=== PATIENT | female | born 1950 | race Caucasian/White ===

== ENCOUNTER → 2017-06-05 | Outpatient (CLI) | payer OTHER ==
[~2017-06-05] MED LIST: ASPIRIN81 M1 PO; ATIVAN0.5 MG PO; CEFUROXIME AXE250 MG PO; CLONIDINE0.2 MG PO; FLEXERIL5 MG PO; KLONOPIN0.5 MG PO; PERCOCET 325 MG1 TA2 PO; PREMARIN1.25 MG PO; PROTONIX40 MG PO; TOPROL XL50 MG PO; VICODIN 5/500 505 MG PO; VICODIN 500 MG-1 TAB PO; ZOFRAN ODT4 MG SL; ZOFRAN8 M1 PO
[2017-06-06 07:06] LABS: IMMUNOGLOBULIN M, QNT 34 mg/dL (26-217)
[2017-06-07 02:05] LABS: IGG SUBCLASS 1 310 mg/dL (248-810); IGG SUBCLASS 2 372 mg/dL (130-555); IGG SUBCLASS 3 55 mg/dL (15-102); IGG SUBCLASS 4 61 mg/dL (2-96); IMMUNOGLOBULIN G, QNT 770 mg/dL (700-1600)
== END | disposition home or self-care (01) ==
LOC: LAB 12:30
PROVIDERS: Internal Medicine Rheumatology
DX: R79.89 Other specified abnormal findings of blood chemistry (principal); Z86.19 Personal history of other infectious and parasitic diseases

== ENCOUNTER 2018-04-01 08:40 | Emergency (ER) | payer OTHER ==
[2018-04-01 11:00] VITALS: BP 162/59
[2018-04-01] MEDS ORDERED: PERCOCET 5-3251 EACH PO (11:12)
== END 2018-04-01 11:29 | disposition home or self-care (01) ==
LOC: ED 08:40
DX: S42.474A Nondisplaced transcondylar fracture of right humerus, initial encounter for closed fracture (principal); Z88.0 Allergy status to penicillin; Z88.2 Allergy status to sulfonamides; Z79.899 Other long term (current) drug therapy; W22.8XXA Striking against or struck by other objects, initial encounter; Y93.89 Activity, other specified; Y92.89 Other specified places as the place of occurrence of the external cause; Y99.8 Other external cause status

== ENCOUNTER → 2018-06-06 | Outpatient (CLI) | payer OTHER ==
[~2018-06-06] MED LIST changes: +PERCOCET 5-3251 EACH PO
== END | disposition home or self-care (01) ==
LOC: US 12:33
DX: R92.8 Other abnormal and inconclusive findings on diagnostic imaging of breast (principal)

== ENCOUNTER → 2018-06-07 | Outpatient (CLI) | payer OTHER | END | disposition home or self-care (01) | LOC: RAD 06-05 13:00 → MAMMO 06-05 13:30 → RAD 10:58 | DX: Z13.820 Encounter for screening for osteoporosis (principal); N95.9 Unspecified menopausal and perimenopausal disorder; Z90.49 Acquired absence of other specified parts of digestive tract ==

== ENCOUNTER → 2019-02-11 | Outpatient (CLI) | payer OTHER ==
[2019-02-11 14:32] LABS: BASO # 0.1 10*3/uL (0.0-0.1); BASO % 0.9 % (0.0-1.0); EOS # 0.2 10*3/uL (0.0-0.4); EOS % 2.7 % (1.0-4.0); HEMOGLOBIN 12.1 g/dl (12.0-16.0); LYMPH # 1.8 10*3/uL (1.3-4.4); LYMPH % 25.9 % (27.0-41.0); MEAN CORPUSCULAR HGB 34.6 pg (27.0-31.0); MEAN CORPUSCULAR HGB CONC 34.6 g/dl (33.0-37.0); MEAN PLATELET VOLUME 9.1 fl (9.6-12.3); MONO # 0.9 10*3/uL (0.1-1.0); MONO % 13.3 % (3.0-9.0); NEUT # 3.9 10*3/uL (2.3-7.9); NEUT % 57.1 % (47.0-73.0); PLATELET COUNT AUTOMATED 240 10*3/uL (130-400); RED CELL DISTRI WIDTH 13.1 % (0-14.5); WHITE BLOOD COUNT 6.9 10*3/uL (4.8-10.8)
[2019-02-11 14:50] LABS: BUN 11 mg/dl (7-24); CHLORIDE 96 mmol/L (98-107); CREATININE 0.89 mg/dL (0.55-1.02); POTASSIUM 4.3 mmol/L (3.5-5.1); SODIUM 128 mmol/L (136-145)
== END | disposition home or self-care (01) ==
LOC: LAB 13:58
PROVIDERS: Internal Medicine
DX: R70.0 Elevated erythrocyte sedimentation rate (principal); R79.82 Elevated C-reactive protein (CRP); R79.89 Other specified abnormal findings of blood chemistry; R82.71 Bacteriuria

== ENCOUNTER 2019-02-15 08:50 | Emergency (ER) | payer OTHER ==
[~2019-02-15] VITALS: Ht 165.1 cm; Wt 54.4 kg
[2019-02-15 08:51] VITALS: BP 112/74
[2019-02-15 09:19] LABS: BASO % 0.6 % (0.0-1.0); EOS # 0.2 10*3/uL (0.0-0.4); EOS % 2.3 % (1.0-4.0); HEMATOCRIT 35.8 % (37.0-47.0); HEMOGLOBIN 12.2 g/dl (12.0-16.0); LYMPH # 0.9 10*3/uL (1.3-4.4); LYMPH % 13.8 % (27.0-41.0); MEAN CELL VOLUME 100.3 fl (81.0-99.0); MEAN CORPUSCULAR HGB 34.2 pg (27.0-31.0); MEAN CORPUSCULAR HGB CONC 34.1 g/dl (33.0-37.0); MEAN PLATELET VOLUME 8.8 fl (9.6-12.3); MONO # 0.6 10*3/uL (0.1-1.0); MONO % 9.3 % (3.0-9.0); NEUT # 4.9 10*3/uL (2.3-7.9); NEUT % 73.7 % (47.0-73.0); PLATELET COUNT AUTOMATED 235 10*3/uL (130-400); RED BLOOD COUNT 3.57 10*6/uL (4.10-5.10); RED CELL DISTRI WIDTH 12.9 % (0-14.5); WHITE BLOOD COUNT 6.7 10*3/uL (4.8-10.8)
[2019-02-15 09:32] LABS: ALBUMIN 3.8 gm/dl (3.1-4.5); ALKALINE PHOSPHATASE 83 U/L (45-117); BUN 10 mg/dl (7-24); CHLORIDE 99 mmol/L (98-107); CREATININE 0.93 mg/dL (0.55-1.02); POTASSIUM 4.2 mmol/L (3.5-5.1); SGOT/AST 12 IU/L (3-35); SGPT/ALT 16 U/L (12-78); SODIUM 131 mmol/L (136-145); TOTAL PROTEIN 7.1 gm/dL (6.4-8.2)
== END 2019-02-15 10:56 | disposition home or self-care (01) ==
LOC: ED 08:50
PROVIDERS: Physician Assistant
DX: E87.1 Hypo-osmolality and hyponatremia (principal); Z79.899 Other long term (current) drug therapy; Z88.0 Allergy status to penicillin; Z88.2 Allergy status to sulfonamides

== ENCOUNTER → 2019-06-26 | Outpatient (CLI) | payer OTHER | END | disposition home or self-care (01) | LOC: US 08:50 | DX: R10.13 Epigastric pain (principal); Z90.49 Acquired absence of other specified parts of digestive tract; Z90.710 Acquired absence of both cervix and uterus; Z90.5 Acquired absence of kidney ==

== ENCOUNTER 2020-03-06 19:56 | Inpatient (IN) | payer OTHER ==
[~2020-03-06] VITALS: Ht 165.1 cm; Wt 59.4 kg
[2020-03-06] MEDS ORDERED: METHOCARBAMOL750 M1 PO (20:29)
[2020-03-06 21:15] LABS: BASO # 0.1 10*3/uL (0.0-0.1); BASO % 0.4 % (0.0-1.0); EOS # 0.1 10*3/uL (0.0-0.4); EOS % 0.7 % (1.0-4.0); HEMATOCRIT 41.2 % (37.0-47.0); LYMPH # 2.3 10*3/uL (1.3-4.4); LYMPH % 16.3 % (27.0-41.0); MEAN CELL VOLUME 102.7 fl (81.0-99.0); MEAN CORPUSCULAR HGB 33.7 pg (27.0-31.0); MEAN CORPUSCULAR HGB CONC 32.8 g/dl (33.0-37.0); MEAN PLATELET VOLUME 8.8 fl (9.6-12.3); MONO % 7.2 % (3.0-9.0); NEUT # 10.5 10*3/uL (2.3-7.9); NEUT % 74.8 % (47.0-73.0); PLATELET COUNT AUTOMATED 285 10*3/uL (130-400); RED BLOOD COUNT 4.01 10*6/uL (4.10-5.10); RED CELL DISTRI WIDTH 13.9 % (0-14.5)
[2020-03-06 21:17] LABS: BILIRUBIN Negative (Negative); BLOOD Trace-Lysed (Negative); CLARITY Clear (Clear); COLOR Yellow (Yellow); GLUCOSE Negative (Negative); KETONE Negative (Negative); LEUKO ESTERASE Trace (Negative); NITRITE Negative (Negative); PH 6.5 (4.5-8.0); SPECIFIC GRAVITY >= 1.030 (1.001-1.030)
[2020-03-06 21:32] LABS: BACTERIA TRACE; EPITHELIAL CELLS 0-2; RBC 0-2 rbc/hpf (0-2)
[2020-03-06 21:44] LABS: ALBUMIN 4.1 gm/dl (3.1-4.5); ALKALINE PHOSPHATASE 93 U/L (45-117); BUN 17 mg/dl (7-24); CHLORIDE 100 mmol/L (98-107); CREATININE 0.86 mg/dL (0.55-1.02); LIPASE 173 U/L (73-393); POTASSIUM 4.3 mmol/L (3.5-5.1); SGOT/AST 19 IU/L (3-35); SGPT/ALT 25 U/L (12-78); SODIUM 133 mmol/L (136-145); TOTAL PROTEIN 8.4 gm/dL (6.4-8.2)
[2020-03-07] VITALS (7 sets, daily range): BP systolic 153–182; BP diastolic 60–85
[2020-03-07 06:20] LABS: HEMATOCRIT 37.4 % (37.0-47.0); MEAN CELL VOLUME 103.6 fl (81.0-99.0); MEAN CORPUSCULAR HGB 34.1 pg (27.0-31.0); MEAN CORPUSCULAR HGB CONC 32.9 g/dl (33.0-37.0); PLATELET COUNT AUTOMATED 233 10*3/uL (130-400); RED BLOOD COUNT 3.61 10*6/uL (4.10-5.10); RED CELL DISTRI WIDTH 13.7 % (0-14.5); WHITE BLOOD COUNT 13.6 10*3/uL (4.8-10.8)
[2020-03-07 07:06] LABS: PLATELET SUFFICIENCY NORMAL (NORMAL); POLYCHROMASIA SLIGHT; TOTAL CELLS COUNTED 100 #CELLS
[2020-03-07 07:13] LABS: BUN 16 mg/dl (7-24); CHLORIDE 99 mmol/L (98-107); CREATININE 0.65 mg/dL (0.55-1.02); SODIUM 131 mmol/L (136-145)
[2020-03-07 07:14] LABS: POTASSIUM 4.5 mmol/L (3.5-5.1)
[2020-03-08] VITALS: BP 158/60
[2020-03-08 04:00] VITALS: BP 154/66
[2020-03-08 08:00] VITALS: BP 164/73
[2020-03-08 12:00] VITALS: BP 138/61
[2020-03-08 16:00] VITALS: BP 149/68
[2020-03-08 20:00] VITALS: BP 181/84
[2020-03-09] VITALS (16 sets, daily range): BP systolic 86–210; BP diastolic 51–95
[2020-03-10] VITALS (7 sets, daily range): BP systolic 121–196; BP diastolic 57–85
[2020-03-10 08:22] LABS: HEMATOCRIT 33.9 % (37.0-47.0); MEAN CELL VOLUME 108.7 fl (81.0-99.0); MEAN CORPUSCULAR HGB 34.6 pg (27.0-31.0); MEAN CORPUSCULAR HGB CONC 31.9 g/dl (33.0-37.0); MEAN PLATELET VOLUME 8.6 fl (9.6-12.3); PLATELET COUNT AUTOMATED 207 10*3/uL (130-400); RED BLOOD COUNT 3.12 10*6/uL (4.10-5.10); WHITE BLOOD COUNT 7.7 10*3/uL (4.8-10.8)
[2020-03-10 08:38] LABS: ALBUMIN 2.5 gm/dl (3.1-4.5); ALKALINE PHOSPHATASE 58 U/L (45-117); BUN 11 mg/dl (7-24); CHLORIDE 106 mmol/L (98-107); POTASSIUM 3.9 mmol/L (3.5-5.1); SGOT/AST 21 IU/L (3-35); SGPT/ALT 16 U/L (12-78); SODIUM 141 mmol/L (136-145); TOTAL PROTEIN 5.7 gm/dL (6.4-8.2)
[2020-03-10 08:45] LABS: BASOPHILS 1 % (0-1); PLATELET SUFFICIENCY NORMAL (NORMAL); POLYCHROMASIA SLIGHT; ROULEAUX SLIGHT; TOTAL CELLS COUNTED 100 #CELLS
[2020-03-11] VITALS (11 sets, daily range): BP systolic 94–172; BP diastolic 38–80
[2020-03-11 06:25] LABS: ALBUMIN 2.3 gm/dl (3.1-4.5); ALKALINE PHOSPHATASE 50 U/L (45-117); BUN 12 mg/dl (7-24); CHLORIDE 109 mmol/L (98-107); CREATININE 0.95 mg/dL (0.55-1.02); POTASSIUM 3.4 mmol/L (3.5-5.1); SGOT/AST 31 IU/L (3-35); SGPT/ALT 17 U/L (12-78); SODIUM 143 mmol/L (136-145); TOTAL PROTEIN 5.6 gm/dL (6.4-8.2)
[2020-03-11 06:47] LABS: HEMATOCRIT 30.7 % (37.0-47.0); MEAN CORPUSCULAR HGB 33.7 pg (27.0-31.0); MEAN CORPUSCULAR HGB CONC 30.6 g/dl (33.0-37.0); MEAN PLATELET VOLUME 9.2 fl (9.6-12.3); PLATELET COUNT AUTOMATED 224 10*3/uL (130-400); RED BLOOD COUNT 2.79 10*6/uL (4.10-5.10); RED CELL DISTRI WIDTH 13.8 % (0-14.5); WHITE BLOOD COUNT 10.2 10*3/uL (4.8-10.8)
[2020-03-11 07:36] LABS: TOTAL CELLS COUNTED 100 #CELLS
[2020-03-11 07:37] LABS: PLATELET SUFFICIENCY NORMAL (NORMAL)
[2020-03-11 14:44] LABS: ALBUMIN 2.2 gm/dl (3.1-4.5); BILIRUBIN, DIRECT 0.2 mg/dL (0.0-0.2); TOTAL PROTEIN 5.6 gm/dL (6.4-8.2)
[2020-03-12] VITALS: BP 184/85
[2020-03-12 04:00] VITALS: BP 168/78
[2020-03-12 06:30] LABS: HEMATOCRIT 27.6 % (37.0-47.0); MEAN CELL VOLUME 110.4 fl (81.0-99.0); MEAN CORPUSCULAR HGB CONC 30.8 g/dl (33.0-37.0); MEAN PLATELET VOLUME 9.4 fl (9.6-12.3); PLATELET COUNT AUTOMATED 235 10*3/uL (130-400); RED CELL DISTRI WIDTH 13.8 % (0-14.5); WHITE BLOOD COUNT 10.7 10*3/uL (4.8-10.8)
[2020-03-12 06:47] LABS: ALBUMIN 2.1 gm/dl (3.1-4.5)
[2020-03-12 06:52] LABS: ALKALINE PHOSPHATASE 53 U/L (45-117); BILIRUBIN, DIRECT < 0.1 mg/dL (0.0-0.2); SGOT/AST 26 IU/L (3-35); SGPT/ALT 18 U/L (12-78); TOTAL PROTEIN 5.7 gm/dL (6.4-8.2)
[2020-03-12 07:34] LABS: TOTAL CELLS COUNTED 100 #CELLS
[2020-03-12 07:35] LABS: PLATELET SUFFICIENCY NORMAL (NORMAL); POLYCHROMASIA SLIGHT
[2020-03-12 08:00] VITALS: BP 158/71
[2020-03-12 10:24] LABS: POTASSIUM 3.7 mmol/L (3.5-5.1)
[2020-03-12 12:00] VITALS: BP 177/95
[2020-03-12 16:00] VITALS: BP 171/73
[2020-03-12 20:00] VITALS: BP 114/68
[2020-03-13] VITALS: BP 170/68
[2020-03-13 04:00] VITALS: BP 176/88
[2020-03-13 05:38] LABS: ALKALINE PHOSPHATASE 49 U/L (45-117); BILIRUBIN, DIRECT < 0.1 mg/dL (0.0-0.2); BUN 23 mg/dl (7-24); CHLORIDE 108 mmol/L (98-107); POTASSIUM 3.9 mmol/L (3.5-5.1); SGOT/AST 26 IU/L (3-35); SGPT/ALT 18 U/L (12-78); SODIUM 140 mmol/L (136-145); TOTAL PROTEIN 5.3 gm/dL (6.4-8.2)
[2020-03-13 06:23] LABS: HEMATOCRIT 24.4 % (37.0-47.0); MEAN CELL VOLUME 107.5 fl (81.0-99.0); MEAN CORPUSCULAR HGB 33.5 pg (27.0-31.0); MEAN CORPUSCULAR HGB CONC 31.1 g/dl (33.0-37.0); MEAN PLATELET VOLUME 9.7 fl (9.6-12.3); PLATELET COUNT AUTOMATED 191 10*3/uL (130-400); RED BLOOD COUNT 2.27 10*6/uL (4.10-5.10); RED CELL DISTRI WIDTH 13.6 % (0-14.5); WHITE BLOOD COUNT 11.1 10*3/uL (4.8-10.8)
[2020-03-13 06:57] LABS: TOTAL CELLS COUNTED 100 #CELLS
[2020-03-13 06:58] LABS: AUER RODS FEW; BURR CELLS FEW; PLATELET SUFFICIENCY NORMAL (NORMAL); POLYCHROMASIA SLIGHT
[2020-03-13 08:00] VITALS: BP 184/90
[2020-03-13 09:12] LABS: POTASSIUM 3.9 mmol/L (3.5-5.1)
[2020-03-13 12:00] VITALS: BP 197/91
[2020-03-13 16:00] VITALS: BP 187/88
[2020-03-13 20:00] VITALS: BP 190/90
[2020-03-14] VITALS: BP 164/80
[2020-03-14 04:00] VITALS: BP 193/97
[2020-03-14 05:53] LABS: ALBUMIN 2.2 gm/dl (3.1-4.5); BILIRUBIN, DIRECT 0.1 mg/dL (0.0-0.2); TOTAL PROTEIN 5.6 gm/dL (6.4-8.2)
[2020-03-14 06:18] LABS: HEMATOCRIT 27.2 % (37.0-47.0); MEAN CORPUSCULAR HGB CONC 33.5 g/dl (33.0-37.0); MEAN PLATELET VOLUME 9.6 fl (9.6-12.3); NUCLEATED RED BLOOD CELL 0.1 10*3/uL (0.0-0.0); NUCLEATED RED BLOOD CELL 0.6 % (0.0-0.0); RED CELL DISTRI WIDTH 13.5 % (0-14.5); WHITE BLOOD COUNT 11.6 10*3/uL (4.8-10.8)
[2020-03-14 06:21] LABS: MEAN CELL VOLUME 104.6 fl (81.0-99.0); PLATELET COUNT AUTOMATED 249 10*3/uL (130-400)
[2020-03-14 06:49] LABS: PLATELET SUFFICIENCY NORMAL (NORMAL); POLYCHROMASIA SLIGHT; ROULEAUX SLIGHT; TOTAL CELLS COUNTED 100 #CELLS
[2020-03-14 06:50] LABS: SCHISTOCYTES FEW
[2020-03-14 08:00] VITALS: BP 170/98
[2020-03-14 10:26] LABS: POTASSIUM 3.2 mmol/L (3.5-5.1)
[2020-03-14 12:00] VITALS: BP 149/94
[2020-03-14 16:00] VITALS: BP 156/97
[2020-03-14 20:00] VITALS: BP 170/63
[2020-03-15] VITALS: BP 178/86
[2020-03-15 04:00] VITALS: BP 168/88
[2020-03-15 07:08] LABS: MEAN CELL VOLUME 104.7 fl (81.0-99.0); MEAN CORPUSCULAR HGB 33.7 pg (27.0-31.0); MEAN CORPUSCULAR HGB CONC 32.2 g/dl (33.0-37.0); MEAN PLATELET VOLUME 10.3 fl (9.6-12.3); NUCLEATED RED BLOOD CELL 0.4 % (0.0-0.0); PLATELET COUNT AUTOMATED 247 10*3/uL (130-400); RED BLOOD COUNT 2.58 10*6/uL (4.10-5.10); RED CELL DISTRI WIDTH 13.7 % (0-14.5); WHITE BLOOD COUNT 10.1 10*3/uL (4.8-10.8)
[2020-03-15 07:28] LABS: CHLORIDE 102 mmol/L (98-107); CREATININE 0.72 mg/dL (0.55-1.02); POTASSIUM 3.1 mmol/L (3.5-5.1); SODIUM 138 mmol/L (136-145)
[2020-03-15 07:42] LABS: PLATELET SUFFICIENCY NORMAL (NORMAL); POLYCHROMASIA SLIGHT; ROULEAUX SLIGHT; TARGET CELLS FEW; TOTAL CELLS COUNTED 100 #CELLS
[2020-03-15 08:00] VITALS: BP 158/80
[2020-03-15 12:00] VITALS: BP 164/84
[2020-03-15 17:00] VITALS: BP 136/74
[2020-03-15 20:00] VITALS: BP 169/74
[2020-03-16] VITALS: BP 159/76
[2020-03-16] MEDS ORDERED: TOPROL XL100 MG PO (04:42)
[2020-03-16 06:24] LABS: HEMATOCRIT 26.1 % (37.0-47.0); MEAN CORPUSCULAR HGB 34.3 pg (27.0-31.0); MEAN PLATELET VOLUME 10.4 fl (9.6-12.3); PLATELET COUNT AUTOMATED 211 10*3/uL (130-400); RED BLOOD COUNT 2.51 10*6/uL (4.10-5.10); RED CELL DISTRI WIDTH 14.2 % (0-14.5); WHITE BLOOD COUNT 10.4 10*3/uL (4.8-10.8)
[2020-03-16 06:58] LABS: ALBUMIN 2.2 gm/dl (3.1-4.5); BUN 19 mg/dl (7-24); CHLORIDE 106 mmol/L (98-107); CREATININE 0.85 mg/dL (0.55-1.02); POTASSIUM 3.3 mmol/L (3.5-5.1); SGOT/AST 20 IU/L (3-35); SGPT/ALT 15 U/L (12-78); SODIUM 137 mmol/L (136-145)
[2020-03-16 06:59] LABS: ALKALINE PHOSPHATASE 57 U/L (45-117); TOTAL PROTEIN 5.5 gm/dL (6.4-8.2)
[2020-03-16 07:05] LABS: POLYCHROMASIA SLIGHT; ROULEAUX SLIGHT; TOTAL CELLS COUNTED 100 #CELLS; TOXIC GRANULATION SLIGHT
[2020-03-16 07:07] LABS: PLATELET SUFFICIENCY NORMAL (NORMAL)
[2020-03-16 12:00] VITALS: BP 139/66
[2020-03-16 16:00] VITALS: BP 107/50
[2020-03-16 20:00] VITALS: BP 109/50
[2020-03-17] VITALS: BP 117/49
[2020-03-17 08:00] VITALS: BP 151/63
[2020-03-17 09:28] LABS: POTASSIUM 3.3 mmol/L (3.5-5.1)
[2020-03-17] MEDS ORDERED: Percocet 325 MG1 TAB PO (09:36)
== END 2020-03-17 10:48 | disposition home health service (06) | DRG 329 ==
LOC: ED 19:56 → ICCU 23:57 → EDHOLD 23:57 → ICCU 03-07 00:35 → 4E 03-15 12:44
PROVIDERS: Internal Medicine; ADMIT Internal Medicine; ATTEND Internal Medicine
PROC: 0D9670Z Drainage of Stomach with Drainage Device, Via Natural or Artificial Opening (ICD-10-PCS; 2020-03-06)
PROC: 0DN84ZZ Release Small Intestine, Percutaneous Endoscopic Approach (ICD-10-PCS; 2020-03-09)
PROC: 0DB80ZZ Excision of Small Intestine, Open Approach (ICD-10-PCS; 2020-03-09)
PROC: 0DN80ZZ Release Small Intestine, Open Approach (ICD-10-PCS; 2020-03-09)
PROC: 05HC33Z Insertion of Infusion Device into Left Basilic Vein, Percutaneous Approach (ICD-10-PCS; 2020-03-11)
PROC: 3E0336Z Introduction of Nutritional Substance into Peripheral Vein, Percutaneous Approach (ICD-10-PCS; principal; 2020-03-13)
PROC: 02HV33Z Insertion of Infusion Device into Superior Vena Cava, Percutaneous Approach (ICD-10-PCS; principal; 2020-03-13)
DX: K56.50 Intestinal adhesions [bands], unspecified as to partial versus complete obstruction (principal); J18.9 Pneumonia, unspecified organism; E43 Unspecified severe protein-calorie malnutrition; J95.89 Other postprocedural complications and disorders of respiratory system, not elsewhere classified; S36.438A Laceration of other part of small intestine, initial encounter; I10 Essential (primary) hypertension; E87.6 Hypokalemia; F41.1 Generalized anxiety disorder; D75.89 Other specified diseases of blood and blood-forming organs; K21.00 Gastro-esophageal reflux disease with esophagitis, without bleeding; K56.7 Ileus, unspecified; Y83.8 Other surgical procedures as the cause of abnormal reaction of the patient, or of later complication, without mention of misadventure at the time of the procedure; Y92.238 Other place in hospital as the place of occurrence of the external cause; X58.XXXA Exposure to other specified factors, initial encounter; Y93.89 Activity, other specified; Y92.89 Other specified places as the place of occurrence of the external cause; Y99.8 Other external cause status; Z90.49 Acquired absence of other specified parts of digestive tract; Z90.710 Acquired absence of both cervix and uterus; Z88.0 Allergy status to penicillin; Z88.2 Allergy status to sulfonamides; Z68.21 Body mass index [BMI] 21.0-21.9, adult

== ENCOUNTER 2020-03-27 11:25 | Inpatient (IN) | payer OTHER ==
[~2020-03-27] VITALS: Ht 165.1 cm; Wt 58.7 kg
[~2020-03-27 11:25] MED LIST changes: +METHOCARBAMOL750 M1 PO; +Percocet 325 MG1 TAB PO; +TOPROL XL100 MG PO
[2020-03-27 11:26] VITALS: BP 136/62
[2020-03-27 12:06] LABS: HEMATOCRIT 22.5 % (37.0-47.0); MEAN CORPUSCULAR HGB 32.4 pg (27.0-31.0); MEAN CORPUSCULAR HGB CONC 32.4 g/dl (33.0-37.0); MEAN PLATELET VOLUME 9.7 fl (9.6-12.3); PLATELET COUNT AUTOMATED 522 10*3/uL (130-400); RED BLOOD COUNT 2.25 10*6/uL (4.10-5.10); RED CELL DISTRI WIDTH 14.6 % (0-14.5)
[2020-03-27 12:21] LABS: ALBUMIN 2.1 gm/dl (3.1-4.5); ALKALINE PHOSPHATASE 167 U/L (45-117); BUN 13 mg/dl (7-24); CHLORIDE 93 mmol/L (98-107); CREATININE 1.08 mg/dL (0.55-1.02); SGOT/AST 24 IU/L (3-35); SGPT/ALT 16 U/L (12-78); SODIUM 131 mmol/L (136-145); TOTAL PROTEIN 6.7 gm/dL (6.4-8.2)
[2020-03-27 12:26] LABS: PLATELET SUFFICIENCY HIGH (NORMAL); TOTAL CELLS COUNTED 100 #CELLS
[2020-03-27 13:15] VITALS: BP 168/67
--- NOTE | 2020-03-27 13:18 | NUR ---
PT. RESTING IN BED. RR EASY AND NON-LABORED. CALL LIGHT WITHIN REACH. WILL CONTINUE TO MONITOR.
--- NOTE | 2020-03-27 14:30 | NUR ---
PT. RESTING IN BED. RR EASY AND NON-LABORED. CALL LIGHT WITHIN REACH. WILL CONTINUE TO MONITOR.
[2020-03-27 14:45] VITALS: BP 155/69
--- NOTE | 2020-03-27 15:30 | NUR ---
PT. RESTING IN BED WITH EYES CLOSED. RR EASY AND NON-LABORED. CALL LIGHT WITHIN REACH. WILL CONTINUE TO MONITOR.
[2020-03-27 16:14] VITALS: BP 173/71
--- NOTE | 2020-03-27 16:30 | NUR ---
PT. RESTING IN BED. RR EASY AND NON-LABORED. CALL LIGHT IN REACH. WILL CONTINUE TO MONITOR.
--- NOTE | 2020-03-27 17:30 | NUR ---
TALKED TO DAUGHTER EXPLAINED EVERYTHING TO HER AND THAT HER MOTHER WOULD BE ADMITTED.
--- NOTE | 2020-03-27 17:30 | NUR ---
PT. RESTING IN BED. RR EASY AND NONLABORED. CALL LIGHT IN REACH. WILL CONTINUE TO MONITOR.
--- NOTE | 2020-03-27 18:00 | NUR ---
DR VALLE REMOVED PTS ABD RUCHI.
--- NOTE | 2020-03-27 18:07 | NUR ---
DAUGHTERS PHONE NUMBER [phone].
--- NOTE | 2020-03-27 18:52 | NUR ---
DR. WALLIS ATTEMPTED TO CALL PTS. DAUGHTER.
[2020-03-27 20:00] VITALS: BP 159/61
--- NOTE | 2020-03-27 20:00 | NUR ---
A 69, admitted to , under the services of DEANDRE Jain MD with a diagnosis of INTRA-ABD ABSCESS POST PROCEDURE. Chief complaint is WOUND DRAINAGE. Patient arrived via ambulance from ER. Monitor applied. Initial assessment completed. Vital signs taken and recorded. DEANDRE JAIN MD notified of admission to the unit. Orders received. See assessment for past medical history, medications and allergies. Patient and/or family oriented to unit. [facility] visitation policy reviewed. Clothing/patient valuable form completed. MANDEEP CORCORAN
--- NOTE | 2020-03-27 20:37 | NUR ---
pt gave verbal consent to nurse to speak w/daughter, Thuy. Attempted to call Thuy, left voice message.
[2020-03-27] MEDS ORDERED: TYLENOL325 M1 PO (21:00)
[2020-03-27] MEDS ORDERED: PERCOCET 5-3251 EACH PO (21:01)
--- NOTE | 2020-03-27 22:21 | NUR ---
DR. MIGUEL NOTIFIED OF ADMISSION. NO ORDERS RCVD AT THIS TIME.
[2020-03-28] VITALS: BP 165/71
--- NOTE | 2020-03-28 02:55 | NUR ---
PT C/O ANXIETY D/T SHE GOT UP TO [facility] AND HAD A BM. NO S/S OF ANXIETY OR DISTRESS NOTED. WOUND TO MID ABD CLEANSED AND OPTIFOAM APPLIED. PT REPOSITIONED FOR COMFORT. PT STATES SHE TAKES ATIVAN AT HOME. ATIVAN NOT ON PT'S HOME MED LIST. WILL MONITOR. CALL LIGHT IN REACH.
--- NOTE | 2020-03-28 07:00 | NUR ---
ARRIVED ON SHIFT, REPORT RECEIVED FROM OFFGOING NURSE, ASSUMED CARE OF PATIENT.
--- NOTE | 2020-03-28 07:30 | NUR ---
INTRODUCED SELF TO PATIENT, BED IN LOW POSITION WITH WHEEL LOCKS ENGAGED, SIDE RAILS UP X 2 FOR TURNING AND REPOSITIONING, CALL LIGHT WITHIN REACH, NO NEEDS VOICED AT THIS TIME. WHITE BOARD UPDATED.
--- NOTE | 2020-03-28 07:43 | NUR ---
SPOKE W/DR. VALLE PER DR. MIGUEL RE PT'S SECOND CT SCAN. PT TO BE TAKEN TO SURGERY FOR PERCUTANEOUS DRAINAGE ON MONDAY. PLACE PICC LINE TODAY FOR TPN IF POSSIBLE. NS W/40K AT 125 ML/HR.
[2020-03-28 08:00] VITALS: BP 158/68
--- NOTE | 2020-03-28 08:11 | NUR ---
CALL PLACED TO DR. [facility], SPOKE WITH FINA ADVISED OF CONSULT.
[2020-03-28 08:18] LABS: MEAN CORPUSCULAR HGB 33.1 pg (27.0-31.0); MEAN CORPUSCULAR HGB CONC 32.4 g/dl (33.0-37.0); MEAN PLATELET VOLUME 9.5 fl (9.6-12.3); PLATELET COUNT AUTOMATED 563 10*3/uL (130-400); RED BLOOD COUNT 2.45 10*6/uL (4.10-5.10); RED CELL DISTRI WIDTH 14.7 % (0-14.5); WHITE BLOOD COUNT 11.7 10*3/uL (4.8-10.8)
[2020-03-28 08:48] LABS: ALBUMIN 2.2 gm/dl (3.1-4.5); ALKALINE PHOSPHATASE 169 U/L (45-117); BUN 9 mg/dl (7-24); CHLORIDE 94 mmol/L (98-107); CREATININE 0.89 mg/dL (0.55-1.02); POTASSIUM 2.5 mmol/L (3.5-5.1); SGOT/AST 23 IU/L (3-35); SGPT/ALT 16 U/L (12-78); SODIUM 134 mmol/L (136-145); TOTAL PROTEIN 7.2 gm/dL (6.4-8.2)
--- NOTE | 2020-03-28 08:49 | NUR ---
PATIENT C/O OF LOW BACK PAIN, RATES PAIN 6/10 MEDICATED WITH DILAUDID ORDERED PRN, WHITE BOARD UPDATED.
[2020-03-28 08:58] LABS: STOMATOCYTE FEW; TOTAL CELLS COUNTED 100 #CELLS; TOXIC GRANULATION SLIGHT; VACUOLATION OF NEUTROPHILS SLIGHT
[2020-03-28 08:59] LABS: PLATELET SUFFICIENCY HIGH (NORMAL); POLYCHROMASIA SLIGHT; ROULEAUX SLIGHT
--- NOTE | 2020-03-28 09:32 | NUR ---
VIKTORIA-S in to talk to patient. Patient states lives at home with . There are 0 steps in the home. Physician: Tara Herrera Pharmacy: [facility] services: [facility] Patient's level of ADLs: INDEPENDENT Patient has working utilities: yes DME: no Follow-up physician's appointment after d/c: will need scheduled Does patient want to access PORTAL?: no Discharge plan Pt states that she is returning home with home health resuming through [facility]. Discussed possible need for SNF. Pt stated firmly that she is absolutely not interested in a SNF. Pt stated that she has support at home and will only need VNA. WILMA ESTRADA
--- NOTE | 2020-03-28 09:49 | NUR ---
PATIENT REPORTS MODERATE RELEIVED FROM DILAUDID GIVEN X 1 HOUR AGO, CURRENT PAIN RATING 3/10
--- NOTE | 2020-03-28 12:15 | NUR ---
PATIENT PAIN WORSENING RATES PAIN 5/10 MEDICATED WITH TORODOL ORDERED PRN.
--- NOTE | 2020-03-28 13:15 | NUR ---
PATIENT REPORTS GOOD RELIEF FROM TORODOL CURRENT PAIN LEVEL 2 OF 10.
[2020-03-28 14:00] VITALS: BP 157/70
--- NOTE | 2020-03-28 15:50 | NUR ---
CALL PLACED TO [facility], SPOKE WITH BALDO CARRION, NURSE TO NURSE REPORT GIVEN.
--- NOTE | 2020-03-28 16:03 | NUR ---
PATIENT C/O LOW BACK PAIN MEDICATED WITH DILAUDID ORDERED.
--- NOTE | 2020-03-28 16:20 | NUR ---
Discharge instructions reviewed with patient/family. Patient receptive and verbalizes understanding. Follow-up care arranged. Written instructions given to [facility], PATIENT REPORTS GOOD EFFECT FROM DILAUDID GIVEN. IV FLUIDS DISCONNECTED. MONITOR ACCOUNTED FOR, TAKEN OUT VIA [facility]. ALL PERSONAL ITEMS SENT WITH PATIENT. EDSON ANDERSON
== END 2020-03-28 16:20 | disposition short-term general hospital (02) | DRG 862 ==
LOC: ED 11:25 → EDHOLD 17:06 → 4E 18:13
PROVIDERS: Emergency Medicine; ADMIT Internal Medicine; ATTEND Internal Medicine
DX: T81.43XA Infection following a procedure, organ and space surgical site, initial encounter (principal); K65.1 Peritoneal abscess; K63.2 Fistula of intestine; Y82.8 Other medical devices associated with adverse incidents; Y83.8 Other surgical procedures as the cause of abnormal reaction of the patient, or of later complication, without mention of misadventure at the time of the procedure; Y83.2 Surgical operation with anastomosis, bypass or graft as the cause of abnormal reaction of the patient, or of later complication, without mention of misadventure at the time of the procedure; Z88.0 Allergy status to penicillin; Z88.2 Allergy status to sulfonamides; Z88.8 Allergy status to other drugs, medicaments and biological substances; Z90.710 Acquired absence of both cervix and uterus; Z79.899 Other long term (current) drug therapy; Z90.49 Acquired absence of other specified parts of digestive tract; Y92.89 Other specified places as the place of occurrence of the external cause

== ENCOUNTER → 2020-09-21 | Outpatient (CLI) | payer OTHER ==
[~2020-09-21] MED LIST changes: +TYLENOL325 M1 PO
== END | disposition home or self-care (01) ==
LOC: US 14:10
PROVIDERS: ATTEND Internal Medicine
DX: E04.9 Nontoxic goiter, unspecified (principal)

== ENCOUNTER → 2020-10-02 | Outpatient (CLI) | payer OTHER | END | disposition home or self-care (01) | LOC: US 09:31 | PROVIDERS: ATTEND Internal Medicine | DX: I65.21 Occlusion and stenosis of right carotid artery (principal); R90.82 White matter disease, unspecified; I67.82 Cerebral ischemia ==

== ENCOUNTER 2021-08-20 15:01 | Emergency (ER) | payer OTHER ==
[~2021-08-20] VITALS: Ht 165.1 cm; Wt 56.7 kg
[2021-08-20 15:10] VITALS: BP 192/94
== END 2021-08-20 17:46 | disposition home or self-care (01) ==
LOC: ED 15:01
DX: S51.811A Laceration without foreign body of right forearm, initial encounter (principal); Z88.0 Allergy status to penicillin; Z88.1 Allergy status to other antibiotic agents; Z90.710 Acquired absence of both cervix and uterus; Z90.49 Acquired absence of other specified parts of digestive tract; F10.929 Alcohol use, unspecified with intoxication, unspecified; W18.39XA Other fall on same level, initial encounter; Y93.89 Activity, other specified; Y92.89 Other specified places as the place of occurrence of the external cause; Y99.8 Other external cause status

== ENCOUNTER → 2021-09-02 | Outpatient (CLI) | payer OTHER | END | disposition home or self-care (01) | LOC: WOUNDCARE 08:56 | PROVIDERS: ATTEND Nurse Practitioner Family | DX: T81.30XA Disruption of wound, unspecified, initial encounter (principal); S51.801A Unspecified open wound of right forearm, initial encounter; I10 Essential (primary) hypertension; Z48.02 Encounter for removal of sutures; W19.XXXA Unspecified fall, initial encounter; Y93.89 Activity, other specified; Y92.098 Other place in other non-institutional residence as the place of occurrence of the external cause; Y99.8 Other external cause status; Y92.238 Other place in hospital as the place of occurrence of the external cause; Y83.8 Other surgical procedures as the cause of abnormal reaction of the patient, or of later complication, without mention of misadventure at the time of the procedure ==

== ENCOUNTER → 2021-09-09 | Outpatient (CLI) | payer OTHER | END | disposition home or self-care (01) | LOC: WOUNDCARE 01:06 | PROVIDERS: ATTEND Nurse Practitioner Family | DX: T81.30XD Disruption of wound, unspecified, subsequent encounter (principal); I10 Essential (primary) hypertension; Z48.02 Encounter for removal of sutures; W19.XXXD Unspecified fall, subsequent encounter ==

== ENCOUNTER → 2021-09-16 | Outpatient (CLI) | payer OTHER | END | disposition home or self-care (01) | LOC: WOUNDCARE 00:23 | PROVIDERS: ATTEND Nurse Practitioner Family | DX: T81.30XD Disruption of wound, unspecified, subsequent encounter (principal); I10 Essential (primary) hypertension; Y84.9 Medical procedure, unspecified as the cause of abnormal reaction of the patient, or of later complication, without mention of misadventure at the time of the procedure ==

== ENCOUNTER → 2022-12-14 | Outpatient (CLI) | payer OTHER ==
[2022-12-14 08:49] LABS: BASO % 0.5 % (0.0-1.0); EOS # 0.1 10*3/uL (0.0-0.4); EOS % 1.8 % (1.0-4.0); HEMATOCRIT 36.9 % (37.0-47.0); LYMPH # 1.3 10*3/uL (1.3-4.4); LYMPH % 22.3 % (27.0-41.0); MEAN CELL VOLUME 102.5 fl (81.0-99.0); MEAN CORPUSCULAR HGB 33.9 pg (27.0-31.0); MEAN CORPUSCULAR HGB CONC 33.1 g/dl (33.0-37.0); MEAN PLATELET VOLUME 8.6 fl (9.6-12.3); MONO # 0.5 10*3/uL (0.1-1.0); MONO % 9.3 % (3.0-9.0); NEUT # 3.7 10*3/uL (2.3-7.9); NEUT % 65.6 % (47.0-73.0); PLATELET COUNT AUTOMATED 247 10*3/uL (130-400); RED CELL DISTRI WIDTH 14.4 % (0-14.5); WHITE BLOOD COUNT 5.6 10*3/uL (4.8-10.8)
[2022-12-14 09:28] LABS: VITAMIN D, 25-HYDROXY 34.4 ng/mL (30-100)
[2022-12-14 09:31] LABS: FREE T4 1.16 ng/dl (0.89-1.76); TOTAL PROTEIN 7.7 gm/dL (6.0-8.0)
== END | disposition home or self-care (01) ==
LOC: LAB 08:25
PROVIDERS: ATTEND Internal Medicine
DX: Z13.0 Encounter for screening for diseases of the blood and blood-forming organs and certain disorders involving the immune mechanism (principal); Z13.1 Encounter for screening for diabetes mellitus; Z13.220 Encounter for screening for lipoid disorders; Z13.21 Encounter for screening for nutritional disorder; Z13.29 Encounter for screening for other suspected endocrine disorder; Z13.89 Encounter for screening for other disorder; Z13.9 Encounter for screening, unspecified; I10 Essential (primary) hypertension; E55.9 Vitamin D deficiency, unspecified; F41.1 Generalized anxiety disorder

== ENCOUNTER → 2023-01-19 | Outpatient (CLI) | payer OTHER | END | disposition home or self-care (01) | LOC: US 08:09 | PROVIDERS: ATTEND Internal Medicine | DX: Z00.00 Encounter for general adult medical examination without abnormal findings (principal); R79.89 Other specified abnormal findings of blood chemistry ==

== ENCOUNTER → 2023-04-18 | Outpatient (CLI) | payer OTHER | END | disposition home or self-care (01) | LOC: WOUNDCARE 04:42 | PROVIDERS: ATTEND Nurse Practitioner Family | DX: S81.811A Laceration without foreign body, right lower leg, initial encounter (principal); L03.115 Cellulitis of right lower limb; L98.9 Disorder of the skin and subcutaneous tissue, unspecified; I10 Essential (primary) hypertension; Z48.02 Encounter for removal of sutures; X58.XXXA Exposure to other specified factors, initial encounter; Y93.89 Activity, other specified; Y92.89 Other specified places as the place of occurrence of the external cause; Y99.8 Other external cause status ==

== ENCOUNTER → 2023-04-25 | Outpatient (CLI) | payer OTHER | END | disposition home or self-care (01) | LOC: WOUNDCARE 00:30 | PROVIDERS: ATTEND Nurse Practitioner Family | DX: S81.811A Laceration without foreign body, right lower leg, initial encounter (principal); L03.115 Cellulitis of right lower limb; L98.9 Disorder of the skin and subcutaneous tissue, unspecified; I10 Essential (primary) hypertension; Z48.02 Encounter for removal of sutures; X58.XXXA Exposure to other specified factors, initial encounter; Y93.89 Activity, other specified; Y92.89 Other specified places as the place of occurrence of the external cause; Y99.8 Other external cause status ==

== ENCOUNTER → 2023-05-02 | Outpatient (CLI) | payer OTHER | END | disposition home or self-care (01) | LOC: WOUNDCARE 00:48 | PROVIDERS: ATTEND Nurse Practitioner Family | DX: S81.811D Laceration without foreign body, right lower leg, subsequent encounter (principal); L03.115 Cellulitis of right lower limb; L98.9 Disorder of the skin and subcutaneous tissue, unspecified; I10 Essential (primary) hypertension; Z48.02 Encounter for removal of sutures; X58.XXXD Exposure to other specified factors, subsequent encounter ==

== ENCOUNTER → 2023-05-09 | Outpatient (CLI) | payer OTHER | END | disposition home or self-care (01) | LOC: WOUNDCARE 00:30 | PROVIDERS: ATTEND Nurse Practitioner Family | DX: S81.811D Laceration without foreign body, right lower leg, subsequent encounter (principal); L03.115 Cellulitis of right lower limb; L98.9 Disorder of the skin and subcutaneous tissue, unspecified; I10 Essential (primary) hypertension; Z79.899 Other long term (current) drug therapy ==

== ENCOUNTER → 2023-05-25 | Outpatient (CLI) | payer OTHER | END | disposition home or self-care (01) | LOC: WOUNDCARE 05-16 01:28 | PROVIDERS: ATTEND Nurse Practitioner Family | DX: S81.811D Laceration without foreign body, right lower leg, subsequent encounter (principal); L03.115 Cellulitis of right lower limb; L98.9 Disorder of the skin and subcutaneous tissue, unspecified; I10 Essential (primary) hypertension; Z48.02 Encounter for removal of sutures; X58.XXXD Exposure to other specified factors, subsequent encounter ==

== ENCOUNTER → 2023-06-01 | Outpatient (CLI) | payer OTHER | END | disposition home or self-care (01) | LOC: WOUNDCARE 00:53 | PROVIDERS: ATTEND Nurse Practitioner Family | DX: L97.812 Non-pressure chronic ulcer of other part of right lower leg with fat layer exposed (principal); S81.811D Laceration without foreign body, right lower leg, subsequent encounter; I87.2 Venous insufficiency (chronic) (peripheral); L03.115 Cellulitis of right lower limb; L98.9 Disorder of the skin and subcutaneous tissue, unspecified; I10 Essential (primary) hypertension; X58.XXXD Exposure to other specified factors, subsequent encounter ==

== ENCOUNTER → 2023-06-08 | Outpatient (CLI) | payer OTHER | END | disposition home or self-care (01) | LOC: WOUNDCARE 01:45 | PROVIDERS: ATTEND Nurse Practitioner Family | DX: S81.811D Laceration without foreign body, right lower leg, subsequent encounter (principal); L97.812 Non-pressure chronic ulcer of other part of right lower leg with fat layer exposed; I87.2 Venous insufficiency (chronic) (peripheral); I10 Essential (primary) hypertension; L03.115 Cellulitis of right lower limb; L98.9 Disorder of the skin and subcutaneous tissue, unspecified; X58.XXXD Exposure to other specified factors, subsequent encounter ==

== ENCOUNTER → 2023-06-15 | Outpatient (CLI) | payer OTHER | END | disposition home or self-care (01) | LOC: WOUNDCARE 01:31 | PROVIDERS: ATTEND Nurse Practitioner Family | DX: E11.622 Type 2 diabetes mellitus with other skin ulcer (principal); L97.812 Non-pressure chronic ulcer of other part of right lower leg with fat layer exposed; S81.811D Laceration without foreign body, right lower leg, subsequent encounter; L98.9 Disorder of the skin and subcutaneous tissue, unspecified; L03.115 Cellulitis of right lower limb; I87.2 Venous insufficiency (chronic) (peripheral); I10 Essential (primary) hypertension; X58.XXXD Exposure to other specified factors, subsequent encounter ==

== ENCOUNTER → 2023-06-22 | Outpatient (CLI) | payer OTHER | END | disposition home or self-care (01) | LOC: WOUNDCARE 01:49 | PROVIDERS: ATTEND Nurse Practitioner Family | DX: L97.812 Non-pressure chronic ulcer of other part of right lower leg with fat layer exposed (principal); S81.811D Laceration without foreign body, right lower leg, subsequent encounter; I87.2 Venous insufficiency (chronic) (peripheral); L03.115 Cellulitis of right lower limb; L98.9 Disorder of the skin and subcutaneous tissue, unspecified; I10 Essential (primary) hypertension; X58.XXXD Exposure to other specified factors, subsequent encounter ==

== ENCOUNTER → 2023-06-29 | Outpatient (CLI) | payer OTHER | END | disposition home or self-care (01) | LOC: WOUNDCARE 02:57 | PROVIDERS: ATTEND Nurse Practitioner Family | DX: L97.812 Non-pressure chronic ulcer of other part of right lower leg with fat layer exposed (principal); S81.811D Laceration without foreign body, right lower leg, subsequent encounter; I87.2 Venous insufficiency (chronic) (peripheral); L03.115 Cellulitis of right lower limb; L98.9 Disorder of the skin and subcutaneous tissue, unspecified; I10 Essential (primary) hypertension; X58.XXXD Exposure to other specified factors, subsequent encounter ==

== ENCOUNTER → 2023-07-06 | Outpatient (CLI) | payer OTHER | END | disposition home or self-care (01) | LOC: WOUNDCARE 01:12 | PROVIDERS: ATTEND Nurse Practitioner Family | DX: L97.812 Non-pressure chronic ulcer of other part of right lower leg with fat layer exposed (principal); S81.811D Laceration without foreign body, right lower leg, subsequent encounter; I87.2 Venous insufficiency (chronic) (peripheral); L03.115 Cellulitis of right lower limb; L98.9 Disorder of the skin and subcutaneous tissue, unspecified; I10 Essential (primary) hypertension; X58.XXXD Exposure to other specified factors, subsequent encounter ==

== ENCOUNTER 2024-03-21 00:47 | Inpatient (IN) | payer OTHER ==
[~2024-03-21] VITALS: Ht 165.1 cm; Wt 65.6 kg
[~2024-03-21 00:47] MED LIST changes: +CEPHALEXIN500 M1 PO
[2024-03-21 01:09] VITALS: BP 169/85
[2024-03-21] MEDS ORDERED: MEPERIDINE HYDROCHLORIDE 25 MG/1 ML VIAL IM ONE (01:20)
[2024-03-21] MEDS ORDERED: Promethazine Hydrochloride 25 MG/ML VIAL IM ONE (01:20)
[2024-03-21] MEDS ORDERED: HYDROmorphONE Hydrochloride 1 MG/ML SYR IV ONE (02:45)
[2024-03-21 03:02] LABS: BASO # 0.1 10*3/uL (0.0-0.1); BASO % 0.6 % (0.0-1.0); EOS % 0.2 % (1.0-4.0); HEMATOCRIT 32.8 % (37.0-47.0); LYMPH # 0.9 10*3/uL (1.3-4.4); LYMPH % 8.5 % (27.0-41.0); MEAN CELL VOLUME 94.8 fl (81.0-99.0); MEAN CORPUSCULAR HGB 32.9 pg (27.0-31.0); MEAN CORPUSCULAR HGB CONC 34.8 g/dl (33.0-37.0); MEAN PLATELET VOLUME 8.6 fl (9.6-12.3); MONO # 0.9 10*3/uL (0.1-1.0); NEUT # 8.9 10*3/uL (2.3-7.9); NEUT % 82.2 % (47.0-73.0); PLATELET COUNT AUTOMATED 278 10*3/uL (130-400); RED BLOOD COUNT 3.46 10*6/uL (4.10-5.10); RED CELL DISTRI WIDTH 13.4 % (0-14.5); WHITE BLOOD COUNT 10.8 10*3/uL (4.8-10.8)
[2024-03-21 03:21] LABS: POTASSIUM 3.5 mmol/L (3.4-5.1)
[2024-03-21] MEDS ORDERED: SODIUM CHLORIDE 0.9% 1,000 ML IV ONE ×2 (03:45→10:00)
[2024-03-21] MEDS ORDERED: Ketorolac Tromethamine 30 MG/ML VIAL IV ONE (04:10)
[2024-03-21 05:05] VITALS: BP 179/85
[2024-03-21] MEDS ORDERED: Ketorolac Tromethamine 15 MG/ML VIAL IV SCH (06:00)
[2024-03-21 08:00] VITALS: BP 167/65
[2024-03-21] MEDS ORDERED: HYDROmorphONE Hydrochloride 0.5 MG/0.5 ML SYRINGE IV PRN (08:50)
[2024-03-21 12:00] VITALS: BP 149/67
[2024-03-21 15:48] VITALS: BP 136/57
[2024-03-21 20:00] VITALS: BP 148/86
[2024-03-22] VITALS: BP 146/42
[2024-03-22 08:00] VITALS: BP 159/74
[2024-03-22 09:19] LABS: BUN 17 mg/dl (9-23); CHLORIDE 95 mmol/L (98-107); POTASSIUM 3.8 mmol/L (3.4-5.1)
[2024-03-22] MEDS ORDERED: METOPROLOL SUCCINATE XR 100 MG TAB PO SCH ×2 (10:00)
[2024-03-22] MEDS ORDERED: SODIUM CHLORIDE 0.9% 1,000 ML IV ONE (10:05)
[2024-03-22 12:00] VITALS: BP 148/64
[2024-03-22 16:00] VITALS: BP 144/60
[2024-03-22 20:00] VITALS: BP 160/90
[2024-03-23] VITALS: BP 170/68
[2024-03-23 07:09] LABS: BUN 17 mg/dl (9-23); CHLORIDE 101 mmol/L (98-107); POTASSIUM 3.7 mmol/L (3.4-5.1)
[2024-03-23 08:00] VITALS: BP 180/80
== END 2024-03-23 10:25 | disposition home or self-care (01) | DRG 563 ==
LOC: ED 00:47 → EDHOLD 03:49 → 4E 03:49
PROVIDERS: Internal Medicine; ADMIT Internal Medicine; ATTEND Internal Medicine
DX: S42.201A Unspecified fracture of upper end of right humerus, initial encounter for closed fracture (principal); E87.1 Hypo-osmolality and hyponatremia; N18.31 Chronic kidney disease, stage 3a; D64.9 Anemia, unspecified; F41.1 Generalized anxiety disorder; I12.9 Hypertensive chronic kidney disease with stage 1 through stage 4 chronic kidney disease, or unspecified chronic kidney disease; W18.30XA Fall on same level, unspecified, initial encounter; Y93.89 Activity, other specified; Y92.89 Other specified places as the place of occurrence of the external cause; Y99.8 Other external cause status; Z88.0 Allergy status to penicillin; Z88.8 Allergy status to other drugs, medicaments and biological substances; Z88.2 Allergy status to sulfonamides; Z90.710 Acquired absence of both cervix and uterus; Z90.49 Acquired absence of other specified parts of digestive tract